=== PATIENT | female | born 1940 | race Caucasian/White ===

== ENCOUNTER 2019-11-22 21:25 | Emergency (ER) | payer MEDICARE, OTHER ==
[2019-11-22] MEDS ORDERED: NITROGLYCERIN 1GM/1 INCH PACKET TD ONE (21:30)
[2019-11-22] MEDS ORDERED: ASPIRIN 325 MG TABLET ONE (21:30)
[2019-11-22] MEDS ORDERED: LORAZEPAM 2 MG/ML 1 ML VIAL ONE (21:32)
[2019-11-22 21:44] LABS: BASOPHILS % (AUTO) 0.7 % (0.0-5.0); EOSINOPHILS % (AUTO) 4.1 % (0.0-8.0); HEMATOCRIT 38.3 % (36-48); LYMPHOCYTES % (AUTO) 36.3 % (21.0-51.0); MEAN CORPUSCULAR HEMOGLOBIN 26.1 pg (27.0-33.0); MEAN CORPUSCULAR HGB CONC 31.1 g/dL (32.0-36.0); MONOCYTES % (AUTO) 10.1 % (3.0-13.0); NEUTROPHILS % (AUTO) 48.5 % (40.0-77.0); PLATELET COUNT (AUTO) 218 K/uL (130-400); RED BLOOD CELL COUNT(AUTO) 4.56 MIL/uL (4.00-5.50); RED CELL DISTRIBUTION WIDTH 14.5 % (11.0-15.5); WHITE BLOOD COUNT (AUTO) 7.7 K/uL (4.8-10.8)
[2019-11-22 21:57] LABS: CREATININE 1.1 mg/dL (0.5-1.5)
[2019-11-22 22:03] LABS: INR 0.95 (0.85-1.15); PARTIAL THROMBOPLASTIN TIME 25.5 SEC (26.3-35.5)
[2019-11-22 22:05] LABS: TOTAL PROTEIN, SERUM 7.2 g/dL (6.0-8.3)
== END 2019-11-23 00:22 | disposition home or self-care (01) ==
LOC: EDH 21:25
DX: R07.89 Other chest pain (principal); I10 Essential (primary) hypertension; E03.9 Hypothyroidism, unspecified; E78.00 Pure hypercholesterolemia, unspecified
CPT/HCPCS: 36415; 71045; 80053; 84484 ×2; 85025; 85610; 85730; 93005 ×2; 96374; 99285; J2060

== ENCOUNTER 2024-11-03 15:43 | Emergency (ER) | payer MEDICARE, OTHER ==
[~2024-11-03] VITALS: Ht 157.5 cm; Wt 79.4 kg
[~2024-11-03 15:43] MED LIST: ATOR10 PO; CLON0.1T PO; ENAL-89 PO; LEVO50TA11 PO; MECO10005 PO; OMEG-148 PO; [UNRECOGNIZED DRUG - OTHER] PO
--- NOTE | 2024-11-03 16:55 | ERN ---
ED Note History of Present Illness Stated Complaint: RIGHT KNEE PAIN Chief Complaint: Knee Injury/Swelling Time Seen by MD: 15:48 Dictation: 84-year-old female presents to the ED for evaluation of right knee pain onset one day ago. Patient states she has been having on and off pain for the past year but that yesterday she was unable to walk. Patient reports an inability to bear weight, but denies any recent trauma or injury. 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 Allergies: Coded Allergies: No Known Drug Allergies (Unverified Allergy, Unknown, 11/23/19) Home Meds Active Scripts Lidocaine (Lidoderm Patch 5%) 5 % Patch, 1 PATCH TP DAILY for 3 Days, #3 PATCH 0 Refills may wear up to 12 hours Prov:DILIP MILLS MD 11/03/24 Reported Medications [Vitamin E Ad] No Conflict Check, 1 CAP PO DAILY 11/27/19 [place]-3S/Dha/Epa/Fish Oil (Fish Oil 1,000 mg Softgel) 1 Each Capsule, 3 EACH PO HS, CAP 11/27/19 Atorvastatin Calcium (LIPITOR) 20 Mg Tab, 20 MG PO HS, TAB 11/27/19 Levothyroxine Sodium (Levothyroxine Sodium) 50 Mcg Tablet, 50 MCG PO DAILY, TAB 11/27/19 Enalapril Maleate (Enalapril Maleate) 10 Mg Tablet, 10 MG PO BID, TAB 11/27/19 Mecobalamin (B12 Active) 1,000 Mcg Tab.chew, 2000 MCG PO DAILY, TAB.CHEW 11/27/19 Clonidine HCl (Clonidine HCl) 0.1 Mg Tablet, 0.1 MG PO DAILY PRN for IF SBP GREATER THAN 170, TAB 11/27/19 Past Medical History Past Medical History: Heart Disease, Hypertension Surgical History: CABG Review of System Dictation Constitutional: Negative for fever,chills, and weight loss Eyes: Negative for injury, pain,redness, and discharge ENT: Negative for injury,pain or swelling Cardiovascular: Negative for chest pain, palpitations, and edema Respiratory: Negative for shortness of breath, cough, and wheezing, Abdomen/GI: Negative for abdominal pain, nausea, vomiting, diarrhea, and constipation Back: Negative for injury and pain : Negative for injury, bleeding and discharge MS/Extremity: Positive for right knee pain Skin: Negative for rash, and discoloration Neuro: Negative for headache, weakness, numbness, tingling, and seizure Psych: Negative for suicide ideation, homicidal ideation, and hallucinations Initial Vital Sign VS Vital Signs Date Time Temp Pulse Resp B/P (MAP) Pulse Ox O2 Delivery O2 Flow Rate FiO2 11/03/24 15:56 98.2 63 16 165/90 96 Room Air Physical Exam Dictation General: awake, alert, NAD Head/Face: Normocephalic, atraumatic Eyes: PERRL, EOMI, vision at baseline ENT: oral cavity clear, TMs clear, no signs of infection Neck: Trachea midline, supple, no nuchal rigidity Cardiovascular: RRR, normal S1/S2, No MRGs, no JVD Respiratory: CTAB, no respiratory distress, No rales or wheezes Abdomen: Soft, non-tender, non-distended, normal bowel sounds, no guarding or rebound. Skin: Warm, dry, normal turgor, no rash MS/Extremity: Pulses equal, no cyanosis, neurovascular intact, right knee tenderness Neuro: COAx4, GCS 15, strength 5/5, CN 2-12 intact, normal cerebellar exam, normal gait, Psych: Normal behavior, mood, and affect normal ED Course ED Course Orders Procedure Category Date Status Time Knee 3vws Rt RAD 11/03/24 Resulted 16:05 Ketorolac 60mg/2ml PHA 11/03/24 Complete (Toradol 60mg/2ml) 17:30 Lidocaine (Lidoderm PHA 11/03/24 Complete Patch 5%) 17:30 Apply Tevin Wrap (Er) CPOE 11/03/24 Transmitted 17:11 Current Medications Medications (Trade) Dose Ordered Sig/Patrick Route PRN Reason Start Time Stop Time Status Last Admin Dose Admin Ketorolac Tromethamine (toRADol 60MG/ 2ML) 15 mg ONCE ONCE IM 11/03/24 17:30 11/03/24 17:31 DC 11/03/24 18:08 Lidocaine (Lidoderm Patch 5%) 1 patch ONCE ONCE TP 11/03/24 17:30 11/03/24 17:31 DC 11/03/24 18:08 Vital Signs Date Time Temp Pulse Resp B/P (MAP) Pulse Ox O2 Delivery O2 Flow Rate FiO2 11/03/24 15:56 98.2 63 16 165/90 96 Room Air Neurovascular intact distally, no signs of DVT Medical Decision Making MDM MDM: Differential diagnosis: Fracture, knee pain, osteoarthritis Risk of complication and/or morbidity or mortality of patient management: None Medications-Per medication reconciliation Need for hospitalization: Patient does not meet criteria for hospitalization. Need for emergency major/minor surgery: No There are no social concerns with this patient. Prescription drug management Prescriptions will include symptomatic care I independently interpreted the test that were performed, results were reviewed by me and considered findings on radiology if ordered. Medical management and examination interpretation discussions were had by me with other qualified healthcare professionals as indicated for the patient's care. DX & DISP Disposition: Discharge Departure Impression: Primary Impression: Right knee pain Additional Impression: Osteoarthritis Condition: Stable Scripts Lidocaine (Lidoderm Patch 5%) 5 % Patch 1 PATCH TP DAILY for 3 Days, #3 PATCH 0 Refills may wear up to 12 hours Prov: DILIP MILLS MD 11/03/24 Referrals: SELF,REFERRAL (PCP) DILIP MILLS MD Nov 03, 2024 16:55
--- NOTE | 2024-11-03 16:56 | HMCIMG ---
RIGHT KNEE RADIOGRAPHS - 3 VIEWS INDICATION: Pain COMPARISON: None FINDINGS: AP, lateral, and oblique views. No acute fracture or dislocation identified. Moderate hypertrophic tricompartmental right knee osteoarthropathy includes moderate to severe medial femorotibial joint space narrowing and secondary mild widening of the lateral compartment joint space, remodeling/related flattening of the articular surfaces, and hypertrophic marginal osteophyte formation. Early medial tibial plateau downsloping detected. 10 mm loose ossific body medial and adjacent to the medial femoral condyle. No significant joint effusion is present. Mild calcific plaque along the outflow and runoff arterial nails. IMPRESSION: Moderate hypertrophic tricompartmental right knee osteoarthropathy.
--- NOTE | 2024-11-03 17:32 | NUR ---
PT TO FT AT THIS TIME
[2024-11-03] MEDS ORDERED: LIDOP TP (17:45)
[2024-11-03] MEDS: LIDOCAINE 5% TOPICAL PATCH TP ONE (18:08)
[2024-11-03] MEDS: ketOROlac 60 MG VIAL (30MG/ML) IM ONE (18:08)
[2024-11-03 18:21] VITALS: BP 165/85; PULSE 60; RESP 16; TEMP 98.2; O2SAT 99
== END 2024-11-03 18:54 | disposition home or self-care (01) ==
LOC: EDH 15:43
DX: M17.11 Unilateral primary osteoarthritis, right knee (principal); I11.9 Hypertensive heart disease without heart failure; Z79.890 Hormone replacement therapy; Z79.899 Other long term (current) drug therapy; Z95.1 Presence of aortocoronary bypass graft
CPT/HCPCS: 99283; 73562; 96372; J1885; 99284